=== PATIENT | female | born 1955 | race Caucasian/White ===

== ENCOUNTER 2024-03-31 06:06 | Day surgery (SDC) | payer OTHER, SELFPAY ==
[2024-03-31] VITALS (22 sets, daily range): BP systolic 91–139; BP diastolic 49–94; BMI 22.3
[2024-03-31] MEDS: NORMOSOL-R 1000 IV (06:35)
[2024-03-31] MEDS: D5/0.45%NSS with KCL 20 MEQ 1000 IV (10:10)
--- NOTE | 2024-03-31 11:39 | SUR.PHASEI ---
1115: Pt. reporting bladder discomfort, bladder scan for 350-375, MD Galloway contacted and stated it was okay to straight cath for comfort, straight cath for: 425cc
1120: MD Galloway contacted for DENNY drain not holding suction, at bedside to fix drain, DENNY was resecured and now holding suction, pt. is not reporting any pain or discomfort, surgical site remain C/D/I no signs of bleeding or blood/air collection
around neck
[2024-03-31] MEDS: ANCEF IV (12:21)
[2024-03-31] MEDS: DECADRON IV (12:22)
--- NOTE | 2024-03-31 12:51 | CON.HOSP ---
Consultation
-
Date/Time Consultation Requested: 03/31/24 9:13AM
Date/Time Consultation Performed: 03/31/24 12:50PM
Family Physician
-
Family Physician: NOT KNOW UNKNOWN - PT DOES
Chief Complaint
-
medical management
History of Present Illness
Ms. Tiera Aguirre is a 68 yo woman with hx PAD on asa/plavix, HTN, HLD, CKD, tobacco use, several year history of left parotid lesion s/p FNA consistent with pleomorphic adenoma now s/p left superficial parotidectomy with facial nerve dissection
today. Medicine is asked to consult for medical management.
Patient seen in PACU. She denies chest pain or shortness of breath. No recent fevers. Feels well. Has gauze over surgical site.
She held Plavix starting 10 days ago. She states she is trying to quit smoking, now smokes ~ 3 cigarettes/day.
Medical History
Past Medical History
Past Medical History: Reports Other (HTN, HLD, CKD, tobacco use, several year history of left parotid lesion)
Past Surgical History: Reports Other ( left superficial parotidectomy with facial nerve dissection)
Social History
Tobacco: Smoker
Alcohol: Occasional
Family History
Family History: Reviewed & Not Pertinent
Allergies / Home Medications
Allergies reflects when Allergies were last updated in [employer].
Home Medications with original date entered in [employer]
Allergy/Medication List:
Allergies
Allergy/AdvReac Type Severity Reaction Status Date / Time
No Known Allergies Allergy Verified 03/31/24 06:11
Home Medications
aspirin 81 mg tablet,delayed release 81 mg PO DAILY 03/29/24
bupropion HCl 300 mg 24 hr tablet, extended release 300 mg PO DAILY 03/29/24
cholecalciferol (vitamin D3) 50 mcg (2,000 unit) capsule (Vitamin D3) 50 mcg PO DAILY 03/29/24
clopidogrel 75 mg tablet 75 mg PO DAILY 03/29/24
ibuprofen 200 mg capsule 600 mg PO Q6H PRN pain 03/29/24
magnesium 200 mg tablet 400 mg PO DAILY 03/29/24
mecobalamin (vitamin B12) 1,000 mcg chewable tablet 1,000 mcg PO DAILY 03/29/24
metoprolol tartrate 100 mg tablet 100 mg PO DAILY 03/29/24
multivitamin 1 tab PO DAILY 03/29/24
simvastatin 40 mg tablet 40 mg PO HS 03/29/24
Review of Systems
-
History Source: Patient
A 12 point Review of Systems was completed except as noted: Yes
Physical Exam
Vital Signs
Vital Signs
Temp Pulse Resp BP Pulse Ox
98.0 F 65 11 108/56 98
03/31/24 11:25 03/31/24 12:32 03/31/24 12:32 03/31/24 12:32 03/31/24 12:25
Physical Exam
General: No Apparent Distress
HEENT: Other (surgical site with gauze c/d/i)
Respiratory: Clear; Negative Wheezes
Cardiac: S1/S2 and Regular Rhythm
GI: Soft and Non Tender
Musculoskeletal: No Edema
Neuro: AO x 3
Psych: Calm
Data Reviewed
-
Diagnostic Radiology: Report Reviewed by Me
Lab Data: Labs Reviewed
Impression / Plan
-
Ms. Tiera Aguirre is a 68 yo woman with hx HTN, HLD, CKD, tobacco use, several year history of left parotid lesion s/p FNA consistent with pleomorphic adenoma now s/p left superficial parotidectomy with facial nerve dissection today. Medicine is
asked to consult for medical management.
Left parotid lesion
Pleomorphic Adenoma
-s/p left superficial parotidectomy with facial nerve dissection today
-management per ENT
-CLD for lunch, advance as tolerated
-IV Decadron
-continue to hold [employer] Plavix
-pain control
-IVF
Anxiety
-[employer] Bupropion 300mg PO QD (recently increased)
Essential HTN
-metoprolol 50 BID (confirmed this is home dosing)
-she is no longer on Lisinopril - will stop
HLD
-[employer] statin
CKD
-last creatinine
PAD
-[employer] asa/statin
-[employer] Plavix held (unclear if needs to continue - patient to follow up as outpatient)
-hx left subclavian artery stenting
DVT PPx hep subQ
[2024-03-31 13:11] LABS: Hematocrit 34.2 % (37.0-47.0); Hemoglobin 11.7 g/dL (12.0-16.0); Mean Corp Hgb Conc. 34.2 g/dL (33.0-37.0); Mean Corpuscular Hgb 32.2 pg (27.0-31.0); Mean Corpuscular Volume 94.2 fL (81.0-99.0); Mean Platelet Volume 10.4 fL (7.4-10.4); Platelet Count 172 10^3/uL (130-400); Red Blood Cell Count 3.63 10^6/uL (4.20-5.40); White Blood Cell Count 5.5 10^3/uL (4.8-10.8)
[2024-03-31 13:20] LABS: Blood Urea Nitrogen 15 mg/dl (7-17); Calcium 8.5 mg/dl (8.4-10.2); Carbon Dioxide 19 mmol/L (22-30); Chloride 104 mmol/L (98-107); Estimated Creatinine Clearance 43 ml/min; Glucose 178 mg/dl (70-99); Magnesium 1.9 mg/dl (1.6-2.3); Potassium 3.8 mmol/L (3.5-5.1); Sodium 135 mmol/L (135-145); eGFR 55.42
--- NOTE | 2024-03-31 14:15 | PTCARENOTE ---
Pt arrived to [facility] [address] s/p L parotidectomy. L neck DENNY drain, draining sanguineous, dressing C/D/I, IVF infusing. Neuro/NV intact. Pt states moderate pain at this time, will assess next time/dose for pain medication to be given. Pt oriented to call
gomez and room, bed in lowest position and locked. Call gomez within reach.
[2024-03-31] MEDS: NICODERM TRANSDERMAL 7 MG TRANSDERM (14:42)
[2024-03-31] MEDS: PERCOCET 5/325 1 TABLET PO ×2 (14:42→21:27)
[2024-03-31] MEDS: DECADRON 6 MG IV (17:25)
[2024-03-31] MEDS: ANCEF 5 IV (17:25)
[2024-03-31] MEDS: HEPARIN 5000 UNITS SC (19:41)
[2024-03-31] MEDS: MORPHINE SULFATE 2 MG IV (19:52)
[2024-03-31] MEDS: LIPITOR 20 MG PO (19:54)
[2024-03-31] MEDS: ATIVAN 1 MG PO (21:27)
[2024-03-31] MEDS: LOPRESSOR 50 MG PO (21:27)
[2024-04-01] MEDS: ANCEF 5 IV (01:55)
[2024-04-01] MEDS: D5/0.45%NSS with KCL 20 MEQ 1000 IV (01:55)
[2024-04-01 03:38] VITALS: BP 146/67
[2024-04-01] MEDS: PERCOCET 5/325 1 TABLET PO ×2 (05:05→09:06)
--- NOTE | 2024-04-01 06:57 | W.PN.UPDATE ---
Update Note
Progress Note Update
Pt s c/o
Afebrile
Wound site clean and dry
Facial nerve intact
DENNY - 10 cc , removed
A/P stable s/p parotidectomy
d/c home
Pt has antibiotic and pain rxs already called in
Resume home meds
May restart Plavix after 48 hrs
Follow up 1 week
[2024-04-01 06:58] VITALS: BP 161/81
[2024-04-01] MEDS: LOPRESSOR 50 MG PO (09:02)
[2024-04-01] MEDS: ASPIR LOW (ENTERIC COATED) 81 MG PO (09:02)
[2024-04-01] MEDS: VITAMIN B-12 1000 MCG PO (09:03)
[2024-04-01] MEDS: THERAGRAN 1 TABLET PO (09:03)
[2024-04-01] MEDS: WELLBUTRIN XL (24 hour extended release) 300 MG PO (09:03)
[2024-04-01] MEDS: HEPARIN SC (09:03)
[2024-04-01] MEDS: VITAMIN D3 (cholecalciferol) 50 MCG PO (09:03)
[2024-04-01] MEDS: MAG-TAB SR 84 MG PO (09:03)
[2024-04-01] MEDS: NICODERM TRANSDERMAL 7 MG TRANSDERM (09:04)
[2024-04-01] MEDS: MOTRIN 600 MG PO (09:07)
--- NOTE | 2024-04-01 10:49 | CM ---
Patient seen at bedside. Patient states that she is going home with sister who is a nurse to the sister's home. Patient states that she lives in a 2 story home normally with first floor setting. Patient PCP is Dr. Burleson and she uses the [facility] in
[place] on [address]. Patient sister is enroute to pick her up and she anticipates that she will not need any VN or DME at home. Patient has no further questions or issues. CM will continue to follow for discharge planning needs.
Plan; home with no needs anticipated
--- NOTE | 2024-04-01 11:31 | W.PN.HOSP.TC ---
Today's Communication/Plan
-
DC today
Assessment / Plan
Assessment / Plan
Ms. Tiera Aguirre is a 68 yo woman with hx HTN, HLD, CKD, tobacco use, several year history of left parotid lesion s/p FNA consistent with pleomorphic adenoma now s/p left superficial parotidectomy with facial nerve dissection today. Medicine is
asked to consult for medical management.
Left parotid lesion
Pleomorphic Adenoma
-s/p left superficial parotidectomy with facial nerve dissection today
-cleared for DC today
-advanced diet
-s/p IV Decadron
-resume PLavix in 48 hours
-pain control - Hydrocodone prescribed
-amoxicillin prescribed on DC
Anxiety
-[employer] Bupropion 300mg PO QD (recently increased)
Essential HTN
-metoprolol 50 BID (confirmed this is home dosing)
HLD
-[employer] statin
CKD
-creatinine 1.1 post-op
PAD
-[employer] asa/statin
-resume Plavix in 48 hours
-hx left subclavian artery stenting
DVT PPx hep subQ
Anticipated Discharge: Today
Subjective/Interval History
-
Date of Service: April 01, 2024
patient feeling well this morning, cleared for discharge by Dr. Galloway
pain controlled
Objective Data
-
Vital Signs:
Vital Signs
Temp Pulse Resp BP Pulse Ox
97.7 F 60 16 161/81 99
04/01/24 06:58 04/01/24 06:58 04/01/24 06:58 04/01/24 06:58 04/01/24 09:01
I&O
03/31/24 04/01/24 04/02/24
06:59 06:59 06:59
Intake Total 965 / 965
Output Total
Balance 955 / 955
Review of Systems
-
History Source: Patient
All other systems: Reviewed and negative
Physical Exam
-
General: No Apparent Distress and Other (gauze in place c/d/i )
HEENT: PERRLA and Other
Respiratory: Clear to Auscultation; Negative Wheezes
Cardiac: Regular Rhythm and S1/S2
GI: Soft and Nontender
Musculoskeletal: No Edema
Skin: Warm and Dry; Negative Rash
Neuro: AO x 3
Psych: Calm
Data Reviewed
-
Diagnostic Radiology: Report Reviewed by me
Labs: Labs Reviewed by me
[2024-04-01 11:32] VITALS: BP 156/90
== END 2024-04-01 11:56 | disposition home or self-care (01) ==
LOC: SDS 06:06
PROVIDERS: Student in an Organized Health Care Education/Training Program; ATTENDING PHYSICIAN Otolaryngology; CONSULT PHYSICIAN Internal Medicine
DX: D11.0 Benign neoplasm of parotid gland (principal)
CPT/HCPCS: 42415; 88307; 80048; 83735; 85027